=== PATIENT | female | born 1950 | race African-American/Black ===

== ENCOUNTER 2017-05-03 08:19 | Emergency (ER) | payer MEDICARE ==
[~2017-05-03] VITALS: Ht 165.1 cm; Wt 56.7 kg
[~2017-05-03 08:19] MED LIST: CELEBREX100 MG ORAL; LOSARTAN POTASS25 MG ORAL; SIMVASTATIN20 MG ORAL
[2017-05-03 08:25] VITALS: BP 177/105
[2017-05-03] MEDS ORDERED: Bacitracin Oint UD TOPIC ONE (09:21)
[2017-05-03 09:57] VITALS: BP 177/105
--- NOTE | 2017-05-03 10:24 | Emergency Room Report ---
History of Present Illness General Chief Complaint: Laceration Source: Patient, Medical Record Present Illness HPI 66-year-old female presents ED status post laceration to the left thigh. States while walking this morning she cut her left thigh against the sharp edge of a glass coffee table. Tetanus is up-to-date. Denies any pain. No active bleeding. Denies any other injuries. No other aggravating or relieving factors. Denies any other associated symptom Allergies: Coded Allergies: No Known Allergies (Unverified , 06/17/16) Patient History Social History: Denies: alcohol use, drug use, smoking Last Menstrual Period: menopause Now: No : 0 Para: 0 Immunizations: UTD Reviewed Nursing Documentation: PMH: Agreed, PSxH: Agreed Nursing Documentation-PMH Past Medical History: No History, Except For Hx Hypertension: Yes Review of Systems All Other Systems: negative except mentioned in HPI Physical Exam Vital Signs Date Time Temp Pulse Resp B/P Pulse Ox O2 Delivery O2 Flow Rate FiO2 05/03/17 08:25 98.8 105 16 177/105 96 Room Air Sp02 EP Interpretation: reviewed, normal General Appearance: no apparent distress, alert, GCS 15, non-toxic Head: normocephalic Eyes: bilateral eye PERRL, bilateral eye normal inspection ENT: normal ENT inspection Neck: normal inspection Respiratory: normal inspection Cardiovascular #1: normal inspection Gastrointestinal: normal inspection Rectal: deferred Genitourinary: no CVA tenderness Musculoskeletal: normal inspection Neurologic: alert, oriented x3, responsive, motor strength/tone normal, sensory intact, speech normal Psychiatric: normal inspection Skin: laceration - 2cm laceration to L anterior thigh Lymphatic: normal inspection Procedures Laceration/Wound Repair Laceration/Wound Repair : Consent: Verbal Wound Location: lower extremity - L thigh Wound's Depth, Shape: linear Wound Explored: clean Betadine Prep?: Yes Anesthesia: 1% Lidocaine Wound Debrided: minimal Wound Repaired With: sutures Suture Size/Type: 3:0, proline Layer Closure?: No Sterile Dressing Applied?: Yes Splint Applied?: No Sling Applied?: No Patient Tolerated: Well Complications: None Medical Decision Making Diagnostic Impression: Primary Impression: Laceration of thigh Qualified Codes: S71.112A - Laceration without foreign body, left thigh, initial encounter ER Course Hospital Course 66-year-old F presents to ED s/p laceration L thigh s/p cut on glass coffee table Clinical course Patient placed on stretcher. After initial history and physical, anesthesia provided with lidocaine. Laceration repaired w/o complication. Dressing applied. Diagnosis - laceration of thigh Stable and discharged to home. wound Care instructions given. Followup with PMD in 7-10 days for suture removal. Return to ED if any signs of infection develop Last Vital Signs Date Time Temp Pulse Resp B/P Pulse Ox O2 Delivery O2 Flow Rate FiO2 05/03/17 09:57 98.8 105 16 177/105 96 Room Air Status: improved Disposition: HOME, SELF-CARE Condition: Stable Referrals: NON PHYSICIAN (PCP) Patient Instructions: Laceration Care, Adult Additional Instructions: return to ED in 7-10 days for suture removal. return to ED if any signs of infection develop SHIREEN NANCE M.D. May 03, 2017 10:24
== END 2017-05-03 09:58 | disposition home or self-care (01) ==
LOC: EMR 09:03
DX: S71.112A Laceration without foreign body, left thigh, initial encounter (principal); W25.XXXA Contact with sharp glass, initial encounter; Y92.89 Other specified places as the place of occurrence of the external cause

== ENCOUNTER 2017-05-13 06:17 | Emergency (ER) | payer MEDICARE ==
[~2017-05-13] VITALS: Ht 165.1 cm; Wt 56.7 kg
[2017-05-13] MEDS ORDERED: MELOXICAM7.5 MG PO (06:40)
[2017-05-13 07:03] VITALS: BP 192/76
--- NOTE | 2017-05-13 07:14 | Emergency Room Report ---
History of Present Illness General Chief Complaint: Wound Recheck/Suture Removal Source: Patient Present Illness HPI Patient presents for suture removal. Patient states she had sutures placed 10 days ago. She notes a small amount of erythema around the wound. She denies fever or chills. She denies pain. She has no other complaints. Allergies: Coded Allergies: No Known Allergies (Unverified , 05/13/17) Patient History Past Medical History: see triage record, HTN Social History: Denies: alcohol use, drug use, smoking Last Menstrual Period: n/a Reviewed Nursing Documentation: PMH: Agreed, PSxH: Agreed Nursing Documentation-PMH Past Medical History: No History, Except For Hx Hypertension: Yes Review of Systems All Other Systems: negative except mentioned in HPI Physical Exam Vital Signs Date Time Temp Pulse Resp B/P Pulse Ox O2 Delivery O2 Flow Rate FiO2 05/13/17 06:35 98.6 87 16 200/96 99 Room Air Sp02 EP Interpretation: reviewed, normal General Appearance: no apparent distress, alert, GCS 15, non-toxic Head: normocephalic, atraumatic Eyes: bilateral eye PERRL, bilateral eye normal inspection ENT: hearing grossly normal, normal pharynx, no angioedema, normal voice Neck: full range of motion, supple/symm/no masses Respiratory: no respiratory distress, no retraction, no accessory muscle use, speaking full sentences Rectal: deferred Musculoskeletal: back normal, gait/station normal, normal range of motion Neurologic: alert, oriented x3, responsive, motor strength/tone normal, sensory intact, speech normal Psychiatric: judgement/insight normal, memory normal, mood/affect normal, no suicidal/homicidal ideation Skin: normal color, no rash, warm/dry, well hydrated, other - Healed 2 cm wound on the left anterior thigh. There is about a quarter sized area of erythema surrounding the wound. Lymphatic: no adenopathy Medical Decision Making Diagnostic Impression: Primary Impression: Encounter for removal of sutures Additional Impression: Wound infection ER Course This patient presents for removal of her sutures. She also has mild erythema around the wound. I am unsure whether this is a reaction to the sutures versus an early wound infection. It is slightly erythematous. I will go ahead and start a course of antibiotics as a precaution. I will add a second BP medication to the patients regimen and she is instructed to f/u closely with her PCP. The patient is given return precautions and followup instructions. Last Vital Signs Date Time Temp Pulse Resp B/P Pulse Ox O2 Delivery O2 Flow Rate FiO2 05/13/17 06:35 98.6 87 16 200/96 99 Room Air Disposition: HOME, SELF-CARE Condition: Improved JACQUI THOMAS D.O. May 13, 2017 07:14
[2017-05-13] MEDS ORDERED: AMLODIPINE BESYL5 MG ORAL (07:19)
[2017-05-13] MEDS ORDERED: DOXYCYCLINE MO100 MG ORAL (07:19)
[2017-05-13 08:00] VITALS: BP 163/75
[2017-05-13 08:16] VITALS: BP 163/75
== END 2017-05-13 08:16 | disposition home or self-care (01) ==
LOC: EMR 06:54
DX: S71.112D Laceration without foreign body, left thigh, subsequent encounter (principal); L08.9 Local infection of the skin and subcutaneous tissue, unspecified; Z48.02 Encounter for removal of sutures; I10 Essential (primary) hypertension
CPT/HCPCS: 99282